=== PATIENT | male | born 1955 | race African-American/Black ===

== ENCOUNTER → 2016-10-06 | Day surgery (SDC) | payer OTHER ==
[~2016-10-06] VITALS: Ht 185.4 cm; Wt 83.2 kg
[2016-10-06 08:43] LABS: HCT 50.2 % (42.0-52.0); HGB 17.5 g/dl (13.2-18.0); MCH 29.6 pg (25.0-31.0); MCHC 34.9 g/dL (32.0-36.0); MCV 84.9 fL (78.0-100.0); MPV 9.7 fL (6.0-9.5); RBC 5.91 M/uL (4.70-6.00); WBC 6.5 K/uL (4.0-10.5)
[2016-10-06 09:06] LABS: ALBUMIN 4.4 g/dL (3.5-5.0); BILIRUBIN - TOTAL 0.8 mg/dL (0.1-1.0); CREATININE 0.9 mg/dL (0.7-1.2); GLOBULIN (CALCULATION) 3.2 g/dL (2.2-4.2); POTASSIUM 3.8 mmol/L (3.5-5.1); TOTAL PROTEIN 7.6 g/dL (6.4-8.3)
== END | disposition home or self-care (01) ==
LOC: FAS 08:25
PROVIDERS: Surgery
DX: K43.2 Incisional hernia without obstruction or gangrene (principal)
CPT/HCPCS: 36415; 80053; J0690; J2704; J2710; J3010

== ENCOUNTER 2021-11-14 17:53 | Emergency (ER) | payer MEDICARE ==
[~2021-11-14 17:53] MED LIST: ASPIRIN CHEWABL81 MG PO; GLUCOTROL XL5 MG PO; PRAVASTATIN SOD10 MG PO; PRINIVIL10 MG PO; VITAMIN D250 MC1 PO
[2021-11-14] MEDS ORDERED: CLEOCIN HCL150 MG PO ×2 (20:27→20:45)
== END 2021-11-14 20:53 | disposition home or self-care (01) ==
LOC: FER 17:53
DX: K04.7 Periapical abscess without sinus (principal); K02.9 Dental caries, unspecified; I10 Essential (primary) hypertension; E11.9 Type 2 diabetes mellitus without complications; F17.210 Nicotine dependence, cigarettes, uncomplicated; Z28.310 Unvaccinated for COVID-19
CPT/HCPCS: 99282; Q0163